=== PATIENT | female | born 1965 | race Caucasian/White ===

== ENCOUNTER → 2020-03-27 | Outpatient (CLI) | payer OTHER ==
--- NOTE | 2020-03-27 09:25 | Diagnostic Imaging Report ---
INDICATION: Left knee pain COMPARISON: None. FINDINGS: 3 views left knee demonstrate mild degenerative changes in all 3 compartments. This is most pronounced the medial compartment. There is no fracture, dislocation or joint effusion. IMPRESSION: Mild degenerative joint disease. Dictated by: Dictated on workstation # [id number]
== END ==
LOC: RAD FS 08:50
PROVIDERS: ATTEND Nurse Practitioner Family
DX: M17.12 Unilateral primary osteoarthritis, left knee (principal)
CPT/HCPCS: 73562

== ENCOUNTER → 2021-06-25 | Outpatient (CLI) | payer OTHER ==
--- NOTE | 2021-06-25 13:15 | Diagnostic Imaging Report ---
INDICATION: Left heel pain COMPARISON: None available TECHNIQUE: 3 radiographs of the left foot dated 06/25/2021 FINDINGS: No acute fracture or dislocation. No destructive osseous process. Mild scattered degenerative changes, greatest involving the 1st MTP joint. The Lisfranc joint is well aligned. Small posterior and plantar calcaneal enthesophytes. No suspicious radiopaque foreign body. IMPRESSION: No acute osseous abnormality with mild degenerative changes and small calcaneal enthesophytes. Dictated by: Dictated on workstation # [id number]
== END ==
LOC: RAD FS 10:43
PROVIDERS: ATTEND Nurse Practitioner Family
DX: M19.072 Primary osteoarthritis, left ankle and foot (principal); M77.32 Calcaneal spur, left foot
CPT/HCPCS: 73630

== ENCOUNTER 2021-10-04 05:36 | Outpatient (CLI) | payer OTHER ==
[~2021-10-04] VITALS: Ht 157.5 cm; Wt 90.0 kg
[2021-10-04] MEDS ORDERED: SEMA3TAB PO (11:12)
[2021-10-04] MEDS ORDERED: ATOR40TA70 PO (11:47)
[2021-10-04] MEDS ORDERED: METF-399 PO (11:47)
[2021-10-04] MEDS ORDERED: PREG200C28 PO (11:47)
[2021-10-04] MEDS ORDERED: GLIP10TA13 PO (11:47)
[2021-10-04] MEDS ORDERED: METO-333 PO (11:47)
[2021-10-04] MEDS ORDERED: ASPI-999 PO (11:47)
[2021-10-04] MEDS ORDERED: LISI20TA26 PO (11:47)
== END 2021-10-04 11:52 | disposition home or self-care (01) ==
LOC: PREOP 05:36
PROVIDERS: ATTEND Podiatrist Foot & Ankle Surgery
DX: Z01.818 Encounter for other preprocedural examination (principal)

== ENCOUNTER 2021-10-11 05:56 | Day surgery (SDC) | payer OTHER ==
[2021-10-11] VITALS (11 sets, daily range): BP systolic 112–149; BP diastolic 63–91
[~2021-10-11] VITALS: Ht 157.5 cm; Wt 90.0 kg
[~2021-10-11 05:56] MED LIST: ASPI-999 PO; ATOR40TA70 PO; GLIP10TA13 PO; LISI20TA26 PO; METF-399 PO; METO-333 PO; PREG200C28 PO; SEMA3TAB PO
[2021-10-11] MEDS ORDERED: ceFAZolin INJECTION 1,000 MG VIAL IV ONE (06:15)
[2021-10-11] MEDS ORDERED: LACTATED RINGERS 1,000 ML IV PRN (06:15)
[2021-10-11] MEDS ORDERED: MIDAZOLAM 2 MG/2 ML (VERSED) VIAL ONE (07:03)
[2021-10-11] MEDS ORDERED: fentaNYL INJ 100 MCG/2 ML AMP ONE (07:03)
[2021-10-11] MEDS ORDERED: ONDANSETRON 4 MG/2 ML (SDV) Z0FRAN ONE (07:03)
[2021-10-11] MEDS ORDERED: LIDOCAINE PF 2% 5 ML (XYLOCAINE) VIAL ONE (07:03)
[2021-10-11] MEDS ORDERED: proPOfol 200 MG/20 ML (DIPRIVAN) VIAL IV ONE (07:03)
[2021-10-11] MEDS ORDERED: ceFAZolin INJECTION 1,000 MG ONE (07:04)
[2021-10-11] MEDS ORDERED: BUPIVACAINE 0.5% 30 ML (SENSORCAINE) VIAL ONE (07:07)
--- NOTE | 2021-10-11 07:36 | Progress Note-Pre Operative ---
Pre-Operative Progress Note H&P Reviewed The H&P was reviewed, patient examined and no changes noted. Date Seen by Provider: Oct 11, 2021 Time Seen by Provider: 07:36 Date H&P Reviewed: Oct 11, 2021 Time H&P Reviewed: 07:36 Pre-Operative Diagnosis: Plantar Fasciitis left SYDNEY DALTNO DPJavy Oct 11, 2021 07:36
[2021-10-11] MEDS ORDERED: SEVOFLURANE (ULTANE) 15 ML INHAL SOLN ONE (08:26)
[2021-10-11] MEDS ORDERED: HYDROcodone/APAP 5 MG/325 MG (LORTAB) TAB PO PRN (08:30)
[2021-10-11] MEDS ORDERED: LACTATED RINGERS 1,000 ML IV SCH (08:30)
--- NOTE | 2021-10-11 08:30 | Progress Note-Post Operative ---
Post-Operative Progess Note Surgeon (s)/Merchandise Collector (s) Surgeon SYDNEY DALTON DPM Merchandise Collector: none Pre-Operative Diagnosis Plantar Fasciitis left Post-Operative Diagnosis Same Procedure & Operative Findings Date of Procedure 10/11/21 Procedure Performed/Findings Endoscopic Plantar Fascial Release, left Anesthesia Type General Estimated Blood Loss Estimated blood loss (mL): Minimal Specimens/Packing Specimens Removed None SYDNEY DALTON DPM Oct 11, 2021 08:30
[2021-10-11] MEDS ORDERED: ACHD5005 PO (08:34)
[2021-10-11] MEDS ORDERED: MEPERIDINE (DEMEROL) INJ 50 MG/ML IVP ONE (08:45)
[2021-10-11] MEDS ORDERED: ONDANSETRON 4 MG/2 ML (SDV) Z0FRAN IVP PRN (08:45)
[2021-10-11] MEDS ORDERED: morphine INJ 10 MG/ML 1ML (SYR OR VIAL) IVP ONE (08:45)
--- NOTE | 2021-10-11 09:47 | Anesthesia-General Post-Op ---
General Patient Condition Mental Status/LOC: Same as Preop Cardiovascular: Satisfactory Nausea/Vomiting: Absent Respiratory: Satisfactory Pain: Controlled Complications: Absent Post Op Complications Complications None Follow Up Care/Instructions Patient Instructions None needed. Anesthesia/Patient Condition Patient Condition Patient is doing well, no complaints, stable vital signs, no apparent adverse anesthesia problems. No complications reported per nursing. HAYLEY PERSAUD CRNA Oct 11, 2021 09:47
--- NOTE | 2021-10-11 10:36 | Physical Therapy Ortho Eval ---
PT Orthopedic Evaluation Type of Surgery Prior Level of Function Current Living Status: Spouse Locomotion (Upon Admit): Independent Established Durable Medical Eq: Crutches Subjective Subjective Patient reports 0/10 pain currently in left foot. Steps Into Home: 3 Steps Inside Home: 0 Steps Accessories: No Railing Motor Control Motor Control: Motor Control WNL ROM ROM: WFL, except focal deficit Strength Strength: WFL Transfer SCALE: Activities may be completed with or without assistive devices. 9-Pzevqqnjgv-ffhbqcv completes the activity by him/herself with no assistance from a helper. 5-Set-up or Clean-up Assistance-helper sets up or cleans up; patient completes activity. [place] assists only prior to or following the activity. 4-Supervision or Touching Assistance-helper provides verbal cues and/or touching/steadying and/or contact guard assistance as patient completes activity. Assistance may be provided throughout the activity or intermittently. 3-Partial/Moderate Assistance-helper does LESS THAN HALF the effort. [place] lifts, holds or supports trunk or limbs, but provides less than half the effort. 2-Substantial/Maximal Assistance-helper does MORE THAN HALF the effort. [place] lifts or holds trunk or limbs and provides more than half the effort. 9-Podhedjcc-jhifaf does ALL the effort. Patient does none of the effort to complete the activity. Or, the assistance of 2 or more helpers is required for the patient to complete the activity. If activity was not attempted, code reason: 7-Patient Refused. 9-Not Applicable-not attempted and the patient did not perform the activity before the current illness, exacerbation or injury. 10-Not Attempted due to Environmental Limitations-(lack of equipment, weather restraints, etc.). 88-Not Attempted due to Medical Conditions or Safety Concerns. Transfers (B, C, W/C) (QC): 5 Gait Gait Assistive Device: Crutches Right Lower Extremity: Right Weight Bearing Status RLE: Full Weight Bearing Left Lower Extremity: Left Weight Bearing Status LLE: Weight Bearing/Tolerated Gait (QC): 5 Distance (QC): 6=516-74 ft Distance: 50 feet Gait Level of Assist: 5 Summary/Comments Patient ascended/descended 1 step x 3 with CGA and verbal cues for progression. Treatment Rendered Treatment: Gait Train, Step Train Assessment/Goals Goal Time Frame: 1 Visit Safe Ambulation: Yes Plan Treatment Plan: Discharge Time Time In: 946 Time Out: 1006 Total Billed Treatment Time: 20 Billed Treatment Time Visit, CYRIL Barrios PT Oct 11, 2021 10:36
--- NOTE | 2021-10-11 13:18 | OPERATIVE REPORT ---
DATE OF SERVICE: 10/11/2021 SURGEON: Gretchen Dalton DPM. PREOPERATIVE DIAGNOSIS: Plantar fasciitis, left. POSTOPERATIVE DIAGNOSIS: Plantar fasciitis, left. PROCEDURE: Endoscopic plantar fascial release, left. WOUND CLASS: Clean. ANESTHESIA: General. HEMOSTASIS: Pneumatic thigh tourniquet at 250 mmHg. INDICATIONS: This is a 56-year-old female presents complaining of chronic pain to her left heel. Conservative therapy is met with unsatisfactory results and the patient is agreeable to surgical intervention after risks and complications were discussed at length. No guarantees were extended to the patient and she is willing to proceed. DESCRIPTION OF PROCEDURE: The patient was brought back to the operating table, placed in secure supine position. Appropriate timeout was performed. Pneumatic thigh tourniquet was applied to the left lower extremity over several layers of padding. The left foot was then prepped and draped in normal sterile manner. The left foot was then elevated, allowed to exsanguinate after which the tourniquet was inflated to 250 mmHg. Attention was then directed to the medial aspect of the left heel where a preoperative measurement was applied to identify the insertional area of the plantar fascia. A 0.5 cm vertical incision was created at this juncture where blunt dissection was then carried out in a medial to lateral orientation. This the soft tissue that were overlying the medial portion of the plantar fascia. Next, a blunt instrument was utilized to separate the plantar fascia from the overlying adipose tissue from medial to lateral. The obturator and cannula were then introduced into the medial incision along the inferior aspect of the plantar fascia tenting the lateral skin, which was then incised with a 15 blade with 0.5 cm vertical incision. The obturator cannula were then allowed to exit the lateral incision. The cannula was held in place and the obturator was withdrawn from the foot. A 3 mm scope was applied to the lateral aspect of the cannula visualizing the inferior aspect of the plantar fascia. A hook blade was introduced through the medial portal after which the medial third of the plantar fascia was released under direct inspection. This was followed by a triangular blade releasing again any remaining fibers holding the medial plantar fascia intact. Percutaneous palpation noted good reduction of tension to the medial band of the plantar fascia. The instrumentation and camera were withdrawn from the foot after which the wound was flushed with normal saline. The cannula was then withdrawn from the foot as well. Postoperative sutures included a 4-0 Prolene in a simple interrupted type stitch to the incision sites. Postoperative injection consisted of 10 mL of 0.5% Marcaine injected in a local infusion to the surgical sites. A 10 mg dexamethasone was also injected to the plantar medial aspect of the left heel. Postoperative dressing consisted of Betadine soaked Adaptic, sterile 4 x 4, sterile Kerlix all secured with a Coban wrap. The patient tolerated the anesthesia and procedure well and was transported from the operating room to the recovery room with vital signs stable and vascular status intact to all digits of the left foot. She is to be nonweightbearing for the first 24 hours, then progress to partial weightbearing to her tolerance. We will see her in the office in 10 days' period of time or sooner if necessary. Job ID: [id number] DocumentID: [id number] Dictated Date: 10/11/2021 08:51:40 Bottom Scrubber Date: 10/11/2021 13:17:52 Dictated By: GRETCHEN DALTON DPM
== END 2021-10-11 10:50 ==
LOC: SDC 05:56
PROVIDERS: ATTEND Podiatrist Foot & Ankle Surgery
DX: M72.2 Plantar fascial fibromatosis (principal); I10 Essential (primary) hypertension; I25.10 Atherosclerotic heart disease of native coronary artery without angina pectoris; G47.33 Obstructive sleep apnea (adult) (pediatric); E11.40 Type 2 diabetes mellitus with diabetic neuropathy, unspecified; R25.1 Tremor, unspecified; R41.3 Other amnesia; Z79.899 Other long term (current) drug therapy; Z79.82 Long term (current) use of aspirin; Z79.84 Long term (current) use of oral hypoglycemic drugs; Z87.891 Personal history of nicotine dependence
CPT/HCPCS: 82947; 87081

== ENCOUNTER → 2023-08-07 | Outpatient (CLI) | payer OTHER ==
[~2023-08-07] MED LIST changes: +ACHD5005 PO; -PREG200C28 PO; +PREG200C29 PO; -SEMA3TAB PO; +SEMA3TAB4 PO
== END ==
LOC: CARD 09:18
PROVIDERS: ATTEND Physician Assistant
DX: I25.10 Atherosclerotic heart disease of native coronary artery without angina pectoris (principal)
CPT/HCPCS: 93017